=== PATIENT | male | born 1930 | race Two or more races ===

== ENCOUNTER → 2017-12-04 | Outpatient (CLI) | payer MEDICARE, OTHER ==
[~2017-12-04] MED LIST: NEBI5TAB2 PO
== END | disposition home or self-care (01) ==
LOC: CFH 14:23
PROVIDERS: ATTEND Internal Medicine Cardiovascular Disease
DX: I08.0 Rheumatic disorders of both mitral and aortic valves (principal); I10 Essential (primary) hypertension; R01.1 Cardiac murmur, unspecified
CPT/HCPCS: 93306